=== PATIENT | male | born 1965 | race Caucasian/White ===

== ENCOUNTER 2024-06-03 12:09 | Emergency (ER) | payer MEDICAID, SELFPAY ==
[2024-06-03 12:41] VITALS: BP 157/85; PULSE 70; RESP 18; TEMP 36.4; O2SAT 96; BMI 23.6
[2024-06-03 13:14] LABS: Basophils # 0.1 10^3/uL (0.0-0.1); Basophils % 1.1 %; Eosinophils # 0.3 10^3/uL (0.0-0.8); Eosinophils % 3.8 %; Hematocrit 48.8 % (37-53); Lymphocytes # 1.8 10^3/uL (0.8-4.8); Lymphocytes % 24.2 %; Mean Corpuscular HGB Conc 32.4 g/dL (30-55); Mean Corpuscular Hemoglobin 31.7 pg (27-33); Mean Platelet Volume 9.8 fL (7.4-10.4); Monocytes # 0.8 10^3/uL (0.2-0.9); Monocytes % 11.2 %; Neutrophils # 4.43 10^3/uL (1.8-7.7); Neutrophils % 59.6 %; Nucleated Red Blood Cells % 0 %; Platelet Count 363 10^3/cmm (157-399); Red Blood Count 4.98 10^6/uL (3.85-5.65); Red Cell Distribution Width 13.1 % (12.1-15.1); White Blood Count 7.43 10^3/uL (3.29-11.43)
[2024-06-03 13:37] LABS: Alanine Aminotransferase 20 U/L (0-41); Albumin Level 4.2 g/dL (3.5-5.2); Alkaline Phosphatase 113 U/L (40-130); Aspartate Amino Transferase 26 U/L (0-40); Blood Urea Nitrogen 7 mg/dL (8-23); Calcium 9.1 mg/dL (8.5-10.5); Carbon Dioxide 27 mmol/L (22-29); Chloride 101 mmol/L (98-107); Creatinine Clr Calc Pharmacy 132.3148; Glomerular Filtration Rate 137.4 mL/min (90-130); Glucose 83 mg/dL (65-115); Lipase 161 U/L (13-60); Osmolality Calculated 285 mOsm/kg (285-295); Sodium 139 mmol/L (136-145); Total Bilirubin 0.4 mg/dL (0.15-1.2); Total Protein 7.2 g/dL (6.6-8.7)
--- NOTE | 2024-06-03 14:41 | XR_ITS ---
WS: [id number] Portable AP upright chest, 06/03/2024 Clinical Data: cough/congestion Comparison: Portable chest, 05/22/2012 Findings: No nodules, masses or effusions are seen. The heart is normal. The pulmonary vascularity is not increased. No pneumonia or pneumothorax is seen. There are calcified granulomas in both [place] and in the lateral left lung periphery and lower right lung periphery. There are healed fractures of the left posterior lateral ninth and 10th ribs. The diaphragms are flattened. XR/XR chest 1V portable 25902 Impression: Hyperinflation.
--- NOTE | 2024-06-03 14:42 | W.ED.GENADLT ---
HPI - General Adult General: Chief complaint: Nausea/Vomiting/Diarrhea Stated complaint: n/v, diarrhea Time Seen by Provider: 06/03/24 13:56 Source: patient Mode of arrival: EMS Limitations: no limitations History of Present Illness: Patient is a 58-year-old male who presents to ED today stating I have caught a cold . He states he is having nasal congestion, runny nose, cough, headache, subjective fevers, chills, nausea/vomiting, and diarrhea. Symptoms been present over the past 2 days or so. Patient states he was in a group home several months ago but left stating I wanted to take care of myself at home but is now wanting to go back to the group home. He states he is normally wheelchair-bound due to chronic back pain but does easily transfer in his home to his bed and toilet. At one point he was under the care of a primary care provider however has not seen them in several months as he was unsatisfied with the last care he received. Patient is an everyday smoker/everyday drinker. Onset (ago): day(s) Severity: mild Relieving factors: none Exacerbating factors: none Associated symptoms: Reports headache(s), nausea and vomiting; Deny chest pain, malaise, rash or syncope Treatments prior to arrival: none Related Data Allergies Allergy/AdvReac Type Severity Reaction Status Date / Time codeine Allergy ADR-Agitate Verified 06/03/24 12:45 d Review of Systems Const: Reports: fever(s) (subjective) and chills; Denies: body aches, fatigue or malaise Eyes: Denies: change in vision, blurry vision, photophobia, floaters or seeing flashes ENMT: Reports: nasal discharge and nasal congestion; Denies: throat pain or odynophagia Card: Denies: chest pain, syncope or pre-syncope Resp: Reports: non-productive cough and chest congestion; Denies: wheezing or hemoptysis GI: Reports: nausea and vomiting; Denies: abdominal pain or diarrhea : Denies: flank pain, difficulty urinating, dysuria, urinary frequency, urinary urgency or urinary hesitancy Musc: Denies: neck pain, back pain, extremity pain, extremity swelling, joint pain or joint swelling Skin/Breast: Denies: rash Neuro: Reports: headache(s); Denies: numbness in extremities, weakness in extremities, sensory changes or dizziness Physical Exam Const: COMMON NORMALS: no acute distress, average body habitus, patient oriented x3, no limitations and alert GENERAL APPEARANCE: cooperative ORIENTATION/CONSCIOUSNESS: Yes awake, Yes oriented to person, Yes oriented to place and Yes oriented to time HENMT: COMMON NORMALS: normocephalic and atraumatic HEAD & SCALP: normal to inspection, normocephalic and atraumatic FACE & SINUS: normal facial exam NOSE: Nasal discharge present Neck/C-Spine: COMMON NORMALS: full ROM and no lymphadenopathy Resp: COMMON NORMALS: normal respiratory effort and clear to auscultation bilaterally AUSCULTATION: clear to auscultation bilaterally Cardio: COMMON NORMALS: regular rate and regular rhythm RATE: regular rate RHYTHM: regular rhythm GI: COMMON NORMALS: Normal to inspection, nondistended, normoactive bowel sounds present, Soft to palpation, non-tender, No hepatosplenomegaly present and no masses PALPATION: Yes Soft to palpation and Yes No hepatosplenomegaly present : COMMON NORMALS: Yes no CVA tenderness BLADDER/KIDNEY EXAM: Yes no CVA tenderness Back/Pelvis: COMMON NORMALS: no CVA tenderness Extremity: GENERAL: Yes normal exam except as noted Neuro: COMMON NORMALS: patient oriented x3, moves all extremities, no focal motor deficits and no sensory deficits noted SENSORIUM/ORIENTATION: Yes alert, Yes oriented to person, Yes oriented to place and Yes oriented to time Skin: COMMON NORMALS: no rashes or lesions noted GENERAL SKIN EXAM: no rashes or lesions noted Course Vital Signs: Vital signs: Vital Signs Temperature 97.6 F 06/03/24 12:41 Pulse Rate 70 06/03/24 12:41 Respiratory Rate 18 06/03/24 12:41 Blood Pressure 157/85 06/03/24 12:41 Pulse Oximetry 96 06/03/24 12:41 Oxygen Delivery Me thod Room Air 06/03/24 12:41 [facility] - General Adult Medical Decision Making Patient here clinically in no acute distress. His vital signs are stable. He has not had any episodes of vomiting or diarrhea while here. He is not complaining of any abdominal pain and his abdominal exam was benign. Blood work here is completely unremarkable apart from his lipase of 161. He is an everyday drinker. No previous comparisons. Again he is not having any abdominal tenderness at this time. COVID/flu/RSV testing is negative. His CXR showing no acute findings. At this point I do not have any reason for a 3 midnight hospitalization for him to go to a group home. I will have case management set him up with a primary care provider and they can work on getting him back to a group home if this is his long-term goal plan. Medical Records I reviewed the patient's medical records. Lab Data I reviewed the patient's lab results. 06/03/24 13:00 06/03/24 13:00 Radiology Impressions Chest X-Ray 06/03/24 14:41 Impression: Hyperinflation. Laboratory Results WBC 7.43 10^3/uL (3.29-11.43) 06/03/24 13:00 RBC 4.98 10^6/uL (3.85-5.65) 06/03/24 13:00 Hgb 15.80 g/dL (11.27-16.99) 06/03/24 13:00 Hct 48.8 % (37-53) 06/03/24 13:00 MCV 98.0 fl (82-101) 06/03/24 13:00 MCH 31.7 pg (27-33) 06/03/24 13:00 MCHC 32.4 g/dL (30-55) 06/03/24 13:00 RDW 13.1 % (12.1-15.1) 06/03/24 13:00 Plt Count 363 10^3/cmm (157-399) 06/03/24 13:00 MPV 9.8 fL (7.4-10.4) 06/03/24 13:00 Neut % (Auto) 59.6 % 06/03/24 13:00 Lymph % (Auto) 24.2 % 06/03/24 13:00 [place] % (Auto) 11.2 % 06/03/24 13:00 Eos % (Auto) 3.8 % 06/03/24 13:00 Baso % (Auto) 1.1 % 06/03/24 13:00 Neut # (Auto) 4.43 10^3/uL (1.8-7.7) 06/03/24 13:00 Lymph # (Auto) 1.8 10^3/uL (0.8-4.8) 06/03/24 13:00 [place] # (Auto) 0.8 10^3/uL (0.2-0.9) 06/03/24 13:00 Eos # (Auto) 0.3 10^3/uL (0.0-0.8) 06/03/24 13:00 Baso # (Auto) 0.1 10^3/uL (0.0-0.1) 06/03/24 13:00 Nucleated RBC % (auto) 0 % 06/03/24 13:00 Nucleated RBCs # 0.0 /100WBC 06/03/24 13:00 Sodium 139 mmol/L (136-145) 06/03/24 13:00 Potassium 4.0 mmol/L (3.5-5.1) 06/03/24 13:00 Chloride 101 mmol/L (98-107) 06/03/24 13:00 Carbon Dioxide 27 mmol/L (22-29) 06/03/24 13:00 Anion Gap 15.0 (5-19) 06/03/24 13:00 BUN 7 mg/dL (8-23) L 06/03/24 13:00 Creatinine 0.6 mg/dL (0.7-1.2) L 06/03/24 13:00 GFR Calculation 137.4 mL/min (90-130) H 06/03/24 13:00 Glucose 83 mg/dL (65-115) 06/03/24 13:00 Calculated Osmolality 285 mOsm/kg (285-295) 06/03/24 13:00 Calcium 9.1 mg/dL (8.5-10.5) 06/03/24 13:00 Total Bilirubin 0.4 mg/dL (0.15-1.2) 06/03/24 13:00 AST 26 U/L (0-40) 06/03/24 13:00 ALT 20 U/L (0-41) 06/03/24 13:00 Alkaline Phosphatase 113 U/L (40-130) 06/03/24 13:00 Total Protein 7.2 g/dL (6.6-8.7) 06/03/24 13:00 Albumin 4.2 g/dL (3.5-5.2) 06/03/24 13:00 Globulin 3.0 g/dL (1.3-4.6) 06/03/24 13:00 Lipase 161 U/L (13-60) H 06/03/24 13:00 Coronavirus (PCR) Negative (Negative) 06/03/24 14:55 Influenza A (PCR) Negative (Negative) 06/03/24 14:55 Influenza Type B (PCR) Negative (Negative) 06/03/24 14:55 RSV (PCR) Negative (Negative) 06/03/24 14:55 All radiology interpretation(s) finalized by discharge Discharge Plan Discharge Patient Disposition: Home Clinical Impression: Viral syndrome Condition: Stable Discharge Orders: Discharge ED (Routine); Ordered 06/03/24 Ordered By: Tiffani Richardson Referrals: Max Shay DO [Family Provider] - Patient Instructions: Acute Nausea and Vomiting (DC), Viral Syndrome - Adult Activity Restrictions/Additional Instructions: As we discussed, we we will have case management set you up with a primary care provider and they can work on getting you back into a group home if this is your long-term care goal. I do not have any reason at this time to admit you to the hospital for 3 days for insurance to cover group home placement. You may return to the emergency department for worsening vomiting or diarrhea, severe abdominal pain, fevers, generally feeling worse or unwell, or any other concerns you may have. I hope you begin to feel better soon. Coding Level of Care Code ED Nuclear Plant Equipment Operator for Darrel Bess
[2024-06-03 15:39] LABS: Covid PCR NEGATIVE (Negative); Influenza A NEGATIVE (Negative); Influenza B NEGATIVE (Negative); Respiratory Syncytial Virus Ce NEGATIVE (Negative)
[2024-06-03 16:17] VITALS: BP 152/76; PULSE 87; O2SAT 97
--- NOTE | 2024-06-06 07:10 | DCPLANNER ---
messaged [facility] to establish PCP
== END 2024-06-03 16:18 | disposition home or self-care (01) ==
PROVIDERS: Emergency Provider Physician Assistant; Family Provider Family Medicine
DX: B34.9 Viral infection, unspecified (principal); Z11.52 Encounter for screening for COVID-19
CPT/HCPCS: 36415; 71045; 80053; 83690; 85025; 87637; 99284

== ENCOUNTER → 2024-11-24 09:19 | Outpatient (BNVA) | payer MEDICAID, SELFPAY | PROVIDERS: Family Provider Family Medicine; Visit Provider Nurse Practitioner Family | DX: L40.0 Psoriasis vulgaris (principal); L81.1 Chloasma; L82.1 Other seborrheic keratosis; L21.8 Other seborrheic dermatitis | CPT/HCPCS: 99204 ==

== ENCOUNTER 2025-01-22 15:34 | Emergency (ER) | payer MEDICAID, SELFPAY ==
[2025-01-22 15:35] VITALS: BP 179/90; PULSE 70; RESP 18; TEMP 36.8; O2SAT 94; BMI 23.6
--- OUTSIDE RECORDS SUMMARY | 2025-01-22 15:38 | XMS_ITS | Clinical Summary ---
Author Organization [facility] Address [address] [place] [address] [place] [address] Phone Care Team Providers Care Patient Consumer Marketer Name Role Phone Diana Vegas EVALUATOR Primary Care Provider [phone] Allergies Active Allergy Reactions Criticality Noted Date Comments Codeine Itching 11/25/2023 Tetracycline Other 11/25/2023 Medications baclofen (Lioresal) 10 mg tablet Take 10 mg by mouth 2 (two) times a day. 10/26/2023 Active LORazepam (Ativan) 1 mg tablet Take 1 mg by mouth every 8 (eight) hours if needed. 05/26/2023 Active meloxicam (Mobic) 15 mg tablet Take 15 mg by mouth 1 (one) time each day. 11/09/2023 Active Social History Tobacco Use Types Packs/Day Years Used Date Smoking Tobacco: Former Cigarettes Smokeless Tobacco: Former Tobacco Cessation:Counseling Given: Not Answered Alcohol Use Standard Drinks/Week Comments Never 0 (1 standard drink = 0.6 oz pur e alcohol) PHQ-2 Answer Date Recorded Patient Health Questionnaire-2 Score 0 11/25/2023 [facility] - Mental Health Answer Date Recorde d Little interest or pleasure in doing things Not at all 11/25/2023 Feeling down, depressed, or hopeless Not at all 11/25/2023 Feeling of Stress Not on file 11/25/2023 Sex and Gender Information Value Date Recorded Sex Assigned at Not on file Legal Sex Male 12:04 PM CDT Gender Identity Not on file Sexual Orientation Not on file Last Filed Vital Signs Vital Sign Reading Time Taken Comments Blood Pressure 104/48 11/25/2023 10:00 AM CDT Pulse - - Temperature 36.4 C (97.5 F) 11/25/2023 10:00 AM CDT Respiratory Rate - - Oxygen Saturation - - Inhaled Oxygen Concentration - - Weight - - Height - - Body Mass Index - - Plan of Treatment Health Maintenance Due Date Last Done Comments CT Colonography 1963 Colonoscopy 1963 Colorectal Cancer Screening 1963 FIT-DNA 1963 FIT 1963 FOBT 1963 Lipid Panel 1963 Sigmoidoscopy 1963 MMR Vaccines (1 of 1 - Stand leslie series) 12/12/1964 DTaP,Tdap,and Td Vaccines (1 - Tdap) 12/12/1970 Varicella Vaccines (1 of 2 - 13+ 2-dose series) 12/12/1976 Depression Screening 12/12/1981 Social Drivers of Health (SDoH) 12/12/1981 Pneumococcal Vaccine: 50+ Ye ars (1 of 1 - PCV) 12/12/2013 Zoster Vaccines (1 of 2) 12/12/2013 COVID-19 Vaccine (1 - 2023-2 5 season) 2025 Influenza Vaccine (#1) 2025 RSV Vaccines (1 - 1-dose 75+ series) 12/12/2038 HIB Vaccines Aged Out No longer eligi ble based on patient's age to complete this topic HPV Vaccines Aged Out No longer eligi ble based on patient's age to complete this topic Hepatitis A Vaccines Aged Out No long er eligible based on patient's age to complete this topic Hepatitis B Vaccines Aged Out No long er eligible based on patient's age to complete this topic IPV Vaccines Aged Out No longer eligi ble based on patient's age to complete this topic Meningococcal B Vaccine Aged Out No l onger eligible based on patient's age to complete this topic Meningococcal Vaccine Aged Out No rj rosie eligible based on patient's age to complete this topic Pneumococcal Vaccine Aged Out No long er eligible based on patient's age to complete this topic Rotavirus Vaccines Aged Out No longer eligible based on patient's age to complete this topic Insurance [employer] acquired by [employer] Care Teams Patient Consumer Marketer Relationship Specialty Start Date End Date Diana Vegas NP [address] [place] [address] PCP - General Family Medicine 11/24/23
--- OUTSIDE RECORDS SUMMARY | 2025-01-22 15:38 | XMS_ITS | Encounter Summary ---
Author Organization [employer] Address [address] [facility] 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
--- OUTSIDE RECORDS SUMMARY | 2025-01-22 15:38 | XMS_ITS | Encounter Summary ---
Author Organization [facility] Address [address] [place] [address] Care Team Providers Care Patrol Inspector Name Role Phone Brandt Lees FIELD TECHNICAL ASSISTANT Primary Care Provider [phone] Encounter Details Date Type Department Care Team (Latest Contact Info) Description 07/27/2002 Outpatient Historical [facility] [place] [address] [phone] Yadiel Michelle MD [address] [place] [phone] PNEUMONIA, ORGANISM NOS (Primary Dx); ASTHMA NOS W STATUS ASTHMATICUS Social History Tobacco Use Types Packs/Day Years Used Date Smoking Tobacco: Never Assessed Sex and Gender Information Value Date Recorded Sex Assigned at Not on file 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
--- OUTSIDE RECORDS SUMMARY | 2025-01-22 15:38 | XMS_ITS | Clinical Summary ---
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
--- OUTSIDE RECORDS SUMMARY | 2025-01-22 15:38 | XMS_ITS | Encounter Summary ---
Author Organization [facility] Address [address] [place] [address] Care Team Providers Care Manager Field Investigations Name Role Phone Brandt Lees GLOBAL COMPENSATION ANALYST Primary Care Provider [phone] Encounter Details Date Type Department Care Team (Latest Contact Info) Description 05/24/2004 Outpatient Historical [facility] Medicine [address], [place] [phone] Yadiel Michelle MD [address] [place] [phone] ORAL SOFT TISSUE DIS NEC (Primary Dx); DERMATOPHYTOSIS OF BODY Social History Tobacco Use Types Packs/Day Years Used Date Smoking Tobacco: Never Assessed Sex and Gender Information Value Date Recorded Sex Assigned at Not on file Legal Sex Male 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
--- OUTSIDE RECORDS SUMMARY | 2025-01-22 15:38 | XMS_ITS | Encounter Summary ---
Author Organization [facility] Address [address] [place] [address] Care Team Providers Care Floor Layer Name Role Phone Brandt Lees TUBE BENDER Primary Care Provider [phone] Encounter Details Date Type Department Care Team (Latest Contact Info) Description 01/23/2003 Outpatient Historical [facility] [address] [place] [address] AMBULANCE, [facility] ALCOHOL ABUSE-UNSPEC (Primary Dx) Social History Tobacco Use Types Packs/Day Years Used Date Smoking Tobacco: Never Assessed Sex and Gender Information Value Date Recorded Sex Assigned at Not on file Legal Sex Male 5:08 AM INDUSTRIAL HYGIENE MANAGER Gender Identity Not on file Sexual Orientation Not on file documented as of this encounter Plan of Treatment Not on file documented as of this encounter Visit Diagnoses Diagnosis Alcohol abuse, unspecified- Primary documented in this encounter Care Teams Floor Layer Relationship Specialty Start Date End Date Brandt Lees NP PCP - General 07/30/07 05/27/09 documented as of this encounter
--- OUTSIDE RECORDS SUMMARY | 2025-01-22 15:38 | XMS_ITS | Encounter Summary ---
Author Organization [facility] Address [address] [place] [address] Care Team Providers Care Medical Customer Service Representative Name Role Phone Brandt Lees INVENTORY COORDINATOR Primary Care Provider [phone] Encounter Details Date Type Department Care Team (Late st Contact Info) Description 04/05/2002 Outpatient Historical [facility] Robbins [place] [address] [place] [phone] Social History Tobacco Use Types Packs/Day Years Used Date Smoking Tobacco: Never Assessed Sex and Gender Information Value Date Recorded Sex Assigned at Not on file Legal Sex Male 5:08 AM RUNNER ON Gender Identity Not on file Sexual Orientation Not on file documented as of this encounter Plan of Treatment Not on file documented as of this encounter Visit Diagnoses Not on filedocumented in this encounter Care Teams Medical Customer Service Representative Relationship Specialty Start Date End Date Brandt Lees NP PCP - General 07/30/07 05/27/09 documented as of this encounter
--- OUTSIDE RECORDS SUMMARY | 2025-01-22 15:38 | XMS_ITS | Encounter Summary ---
Author Organization [facility] Address [address] [place] [address] Care Team Providers Care Home Theater Experience Expert Name Role Phone Brandt Lees NP Primary Care Provider [phone] Encounter Details Date Type Department Care Team (Latest Contact Info) Description 10/11/1999 Outpatient Historical [facility] Medicine [address] [phone] Marlon Hager MD [address] [place] [address] Chest pain, unspecified (Primary Dx); Esophageal reflux Social History Tobacco Use Types Packs/Day Years Used Date Smoking Tobacco: Never Assessed Sex and Gender Information Value Date Recorded Sex Assigned at Not on file Legal Sex Male 5:08 AM NITRATING ACID 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
--- OUTSIDE RECORDS SUMMARY | 2025-01-22 15:38 | XMS_ITS | Encounter Summary ---
Author Organization [facility] Address [address] [place] [address] Care Team Providers Care Winter Sports Manager Name Role Phone Brandt Lees NP Primary Care Provider [phone] Encounter Details Date Type Department Care Team (Latest Contact Info) Description 03/03/2002 Outpatient Historical [address] [phone] Alea Burgos MD [address] [place] [id number] WHEEZING (Primary Dx); UNSPEC CONSTIPATION; ABDOMINAL PAIN LUQ; ALCOHOL ABUSE-CONTINUOUS Social History Tobacco Use Types Packs/Day Years Used Date Smoking Tobacco: Never Assessed Sex and Gender Information Value Date Recorded Sex Assigned at Not on file Legal Sex Male 5:08 AM COLOR WORKER Gender Identity Not on file Sexual Orientation Not on file documented as of this encounter Plan of Treatment Not on file documented as of this encounter Visit Diagnoses Diagnosis Wheezing- Primary Unspecified constipation Abdominal pain, left upper quadrant Alcohol abuse, continuous Nondependent alcohol abuse, continuous drinking behavior documented in this encounter Care Teams Winter Sports Manager Relationship Specialty Start Date End Date Brandt Lees NP PCP - General 07/30/07 05/27/09 documented as of this encounter
--- OUTSIDE RECORDS SUMMARY | 2025-01-22 15:38 | XMS_ITS | Encounter Summary ---
Author Organization [facility] Address [address] [place] [address] Care Team Providers Care Card Filer Name Role Phone Brandt Lees NP Primary Care Provider [phone] Encounter Details Date Type Department Care Team (Latest Contact Info) Description 07/15/2004 Outpatient Historical [facility] Medicine [address] [phone] Viridiana Cunningham MD [address] [place] [address] OBST CHRON BRONCHITIS WITH EXAC ([facility]) (Primary Dx); PNEUMONIA, ORGANISM NOS Social History Tobacco Use Types Packs/Day Years Used Date Smoking Tobacco: Never Assessed Sex and Gender Information Value Date Recorded Sex Assigned at Not on file Legal Sex Male 5:08 AM PRODUCTION SUPPORT CONSULTANT Gender Identity Not on file Sexual Orientation Not on file documented as of this encounter Plan of Treatment Not on file documented as of this encounter Visit Diagnoses Diagnosis Obstructive chronic bronchitis with exacerbation ([facility])- Primary Obstructive chronic bronchitis with exacerbation Pneumonia, organism unspecified(486) Pneumonia, organism unspecified documented in this encounter Care Teams Card Filer Relationship Specialty Start Date End Date Brandt Lees NP PCP - General 07/30/07 05/27/09 documented as of this encounter
--- OUTSIDE RECORDS SUMMARY | 2025-01-22 15:38 | XMS_ITS | Clinical Summary ---
Author Organization [facility] Address [address] [facility] Attn: Epic Prelude ADT ISIAH VOSS [address] Care Team Providers Care Shaker Screen Operator Name Role Phone Moses Scott MD Primary Care Provider Allergies Active Allergy Reactions Criticality Noted Date Comments Codeine Itching Low 11/25/2023 Tetracycline Other (See Comments) 11/25/2023 Medications LORazepam (ATIVAN) 1 mg tablet Take 1 mg by mouth every 8 hours as needed. 05/26/2023 Active lisinopriL (PRINIVIL) 20 mg tabletIndications :Primary hypertension Take 1 Tablet (20 mg) by mouth daily. 90 Tablet 1 02/08/2024 Active rOPINIRole (REQUIP) 1 mg tabletIndications :Restless legs syndrome Take 1 Tablet (1 mg) by mouth daily at bedtime. 90 Tablet 1 02/08/2024 Active tiZANidine (ZANAFLEX) 4 mg TabletIndications :Leg cramps Take 1 Tablet (4 mg) by mouth every 8 hours as needed for Spasm. 90 Tablet 2 02/08/2024 Active meloxicam (MOBIC) 15 mg tabletIndications :Chronic right hip pain Take 1 Tablet (15 mg) by mouth daily. 30 Tablet 2 02/08/2024 Active Active Problems Problem Noted Date Diagnosed Date Cigarette dependence 02/08/2024 Encounters Date Type Department Care Team Description 12/27/2024 External Device Data STL ABSTRACTION Provider, Abstract 11/01/2024 External Device Data STL ABSTRACTION Provider, Abstract 10/26/2024 External Device Data STL ABSTRACTION Provider, Abstract from Last 3 Months Family History Medical History Relation Name Comments Heart Attack Father Heart Attack Mother Relation Name Status Comments Father Mother Social History Tobacco Use Types Packs/Day Years Used Date Smoking Tobacco: Every Day Cigarettes 0.3 55.7 Started: 1972 Smokeless Tobacco: Current Chew Tobacco Cessation:Ready to Q uit: Not Asked; Counseling Given: Not Answered Alcohol Use Standard Drinks/Week Comments Yes 10 (1 standard drink = 0.6 oz pu re alcohol) Sex and Gender Information Value Date Recorded Sex Assigned at Not on file Legal Sex Male 12:45 AM DRY KILN OPERATOR Gender Identity Not on file Sexual Orientation Not on file Last Filed Vital Signs Vital Sign Reading Time Taken Comments Blood Pressure 130/100 02/08/2024 1:30 PM CDT Pulse 84 02/08/2024 1:28 PM CDT Temperature 36.4 C (97.5 F) 02/08/2024 1:28 PM CDT Respiratory Rate 16 02/08/2024 1:28 PM CDT Oxygen Saturation 95% 02/08/2024 1:2 8 PM CDT Inhaled Oxygen Concentration - - Weight 83.9 kg (185 lb) 02/08/2024 1:28 PM CDT patient reported Height 175.3 cm (5' 9 ) 02/08/2024 1:28 PM CDT Body Mass Index 27.32 02/08/2024 1:28 PM CDT Plan of Treatment Health Maintenance Due Date Last Done Comments Pre-Diabetes and Diabetes Screening 1965 DTAP/TDAP/TD VACCINES (1 - Tdap) 12/12/1982 Preventative Visit-Managed Medicaid 12/12/1982 COLORECTAL SCREENING 12/12/2008 Colorectal Cancer Screening 12/12/2008 FIT-DNA Q 3 years 12/12/2008 FIT/FOBT Q 1 year 12/12/2008 Flex Sig/CT Colonography Q 5 years 12/12/2008 ZOSTER VACCINE (1 of 2) 12/12/2013 INFLUENZA VACCINE (#1) 2024 RSV VACCINE (60+ or ) (1 - 1-dose 75+ series) 12/12/2038 Insurance [place] Member Subscriber Plan / Payer (Ef fective 2024-Present) Name:Alexey Valdivia Relation to Subscriber:Self Name:Alexey Valdivia Maribel Payer ID:Not on file Group ID:Not on file Type:Medicaid Address: [place] [id number] Care Teams Shaker Screen Operator Relationship Specialty Start Date End Date Moses Scott MD [address] [address] PCP - General Family Practice 02/05/24
--- OUTSIDE RECORDS SUMMARY | 2025-01-22 15:38 | XMS_ITS | Encounter Summary ---
Author Organization [facility] Address [address] [facility] [address] Velan: Epic Prelude ADT ISIAH VOSS [address] Care Team Providers Care Roads Supervisor Name Role Phone Brandt Lees CONTROLLER REPAIRER AND TESTER Primary Care Provider [phone] Encounter Details Date Type Department Care Team (Late st Contact Info) Description 09/11/1999 Outpatient Historical Non-Staff, Physician NO ADDRESS ON FILE Social History Tobacco Use Types Packs/Day Years Used Date Smoking Tobacco: Never Assessed Sex and Gender Information Value Date Recorded Sex Assigned at Not on file Legal Sex Male 5:08 AM ELECTROPHYSIOLOGY TECHNICIAN Gender Identity Not on file Sexual Orientation Not on file documented as of this encounter Plan of Treatment Not on file documented as of this encounter Visit Diagnoses Not on filedocumented in this encounter Care Teams Roads Supervisor Relationship Specialty Start Date End Date Brandt Lees NP PCP - General 07/30/07 05/27/09 documented as of this encounter
--- OUTSIDE RECORDS SUMMARY | 2025-01-22 15:38 | XMS_ITS | Encounter Summary ---
Author Organization [facility] Address [address] [place] [address] Care Team Providers Care Playroom Attendant Name Role Phone Brandt Lees SKIVER WELT END Primary Care Provider Encounter Details Date Type Department Care Team (Latest Contact Info) Description 03/01/2004 Outpatient Historical [facility] Medicine [address] [address] Viridiana Cunningham MD [address] [place] [address] ABNORMAL LIVER FUNCTION STUDY (Primary Dx); ALCOHOL ABUSE-UNSPEC Social History Tobacco Use Types Packs/Day Years Used Date Smoking Tobacco: Never Assessed Sex and Gender Information Value Date Recorded Sex Assigned at Not on file Legal Sex Male 5:08 AM SECOND BUTLER Gender Identity Not on file Sexual Orientation Not on file documented as of this encounter Plan of Treatment Not on file documented as of this encounter Visit Diagnoses Diagnosis Nonspecific abnormal results of liver function study- Primary Alcohol abuse, unspecified documented in this encounter Care Teams Playroom Attendant Relationship Specialty Start Date End Date Brandt Lees NP PCP - General 07/30/07 05/27/09 documented as of this encounter
--- OUTSIDE RECORDS SUMMARY | 2025-01-22 15:38 | XMS_ITS | Encounter Summary ---
Author Organization [facility] Address [address] [place] [address] Care Team Providers Care Pottery Decoration Designer Name Role Phone Brandt Lees RIGHT OF WAY MAINTENANCE SUPERVISOR Primary Care Provider Encounter Details Date Type Department Care Team (Latest Contact Info) Description 05/29/2002 Outpatient Historical [facility] [address] [place] [address] AMBULANCE, [facility] CONDUCT DISORDER OTHR SPEC NEC (Primary Dx) Social History Tobacco Use Types Packs/Day Years Used Date Smoking Tobacco: Never Assessed Sex and Gender Information Value Date Recorded Sex Assigned at Not on file Legal Sex Male 5:08 AM GAS WELDER APPRENTICE Gender Identity Not on file Sexual Orientation Not on file documented as of this encounter Plan of Treatment Not on file documented as of this encounter Visit Diagnoses Diagnosis Other conduct disorder- Primary documented in this encounter Care Teams Pottery Decoration Designer Relationship Specialty Start Date End Date Brandt Lees NP PCP - General 07/30/07 05/27/09 documented as of this encounter
--- OUTSIDE RECORDS SUMMARY | 2025-01-22 15:38 | XMS_ITS | Encounter Summary ---
Author Organization [facility] Address [address] [place] [address] Care Team Providers Care Head Of Research & Insights Name Role Phone Brandt Lees DIAL BRUSHER Primary Care Provider [phone] Encounter Details Date Type Department Care Team (Late st Contact Info) Description 02/15/2003 Outpatient Historical [facility] [place] [address] [place] [phone] Social History Tobacco Use Types Packs/Day Years Used Date Smoking Tobacco: Never Assessed Sex and Gender Information Value Date Recorded Sex Assigned at Not on file Legal Sex Male 5:08 AM HAIR BOILER Gender Identity Not on file Sexual Orientation Not on file documented as of this encounter Plan of Treatment Not on file documented as of this encounter Visit Diagnoses Not on filedocumented in this encounter Care Teams Head Of Research & Insights Relationship Specialty Start Date End Date Brandt Lees NP PCP - General 07/30/07 05/27/09 documented as of this encounter
--- OUTSIDE RECORDS SUMMARY | 2025-01-22 15:38 | XMS_ITS | Encounter Summary ---
Author Organization [facility] Address [address] [place] [address] Care Team Providers Care Principal Developer Name Role Phone Brandt Lees ROPE CLEANER Primary Care Provider [phone] Encounter Details Date Type Department Care Team (Latest Contact Info) Description 03/01/2004 Outpatient Historical [facility] Medicine [address] [address] Brandt Lees NP [address] [place], [place] [address] ABNORMAL LIVER FUNCTION STUDY (Primary Dx) Social History Tobacco Use Types Packs/Day Years Used Date Smoking Tobacco: Never Assessed Sex and Gender Information Value Date Recorded Sex Assigned at Not on file Legal Sex Male 5:08 AM WAXING MACHINE OPERATOR HELPER Gender Identity Not on file Sexual Orientation Not on file documented as of this encounter Plan of Treatment Not on file documented as of this encounter Visit Diagnoses Diagnosis Nonspecific abnormal results of liver function study- Primary documented in this encounter Care Teams Principal Developer Relationship Specialty Start Date End Date Brandt Lees NP PCP - General 07/30/07 05/27/09 documented as of this encounter
--- OUTSIDE RECORDS SUMMARY | 2025-01-22 15:38 | XMS_ITS | Encounter Summary ---
Author Organization [facility] Address [address] [place] [address] Care Team Providers Care Baking Factory Worker Name Role Phone Brandt Lees PHARMACOLOGY PROFESSOR Primary Care Provider [phone] Encounter Details Date Type Department Care Team (Latest Contact Info) Description 01/21/2002 Outpatient Historical [facility] Medicine [address] [phone] Yadiel Michelle MD [address] [place] [address] ACUTE BRONCHITIS (Primary Dx); ABNORMAL FINDINGS-LUNG FIELD Social History Tobacco Use Types Packs/Day Years Used Date Smoking Tobacco: Never Assessed Sex and Gender Information Value Date Recorded Sex Assigned at Not on file Legal Sex Male 5:08 AM MEDIA RELATIONS ASSOCIATE Gender Identity Not on file Sexual Orientation Not on file documented as of this encounter Plan of Treatment Not on file documented as of this encounter Visit Diagnoses Diagnosis Acute bronchitis- Primary Nonspecific (abnormal) findings on radiological and other examination of lung field documented in this encounter Care Teams Baking Factory Worker Relationship Specialty Start Date End Date Brandt Lees NP PCP - General 07/30/07 05/27/09 documented as of this encounter
--- OUTSIDE RECORDS SUMMARY | 2025-01-22 15:38 | XMS_ITS | Encounter Summary ---
Author Organization [facility] Address [address] [place] [address] Care Team Providers Care Senior Branch Manager Name Role Phone Brandt Lees OTR OWNER OPERATOR Primary Care Provider [phone] Encounter Details Date Type Department Care Team (Latest Contact Info) Description 02/26/2006 Outpatient Historical [facility] Medicine [address] [phone] Brandt Lees, OTR OWNER OPERATOR [address] [place] [address] Abdominal Pain, Unspecified Site (Primary Dx) Social History Tobacco Use Types Packs/Day Years Used Date Smoking Tobacco: Never Assessed Sex and Gender Information Value Date Recorded Sex Assigned at Not on file Legal Sex Male 5:08 AM METHODS STUDY ANALYST Gender Identity Not on file Sexual Orientation Not on file documented as of this encounter Plan of Treatment Not on file documented as of this encounter Procedures Procedure Name Priority Date/Time Associated Diagnosis Comments ACUTE HEPATITIS PANEL Routine 02/26/2006 1:15 PM CDT documented in this encounter Results * ACUTE HEPATITIS PANEL (02/26/2006 1:15 PM CDT) HEPATITIS B SURFACE AG Negative Negative INTERFACE SYSTEM HEPATITIS B CORE IGM Negative Negative INTERFACE SYSTEM HEPATITIS A IGM Negative Negative INTE RFACE SYSTEM HEPATITIS C AB Negative Negative INTER FACE SYSTEM Comment: HCV antibody testing is performed by E.I.A. methodology. CDC recommends positive HCV antibody tests have confirmation testing. Low positive results should be confirmed with RIBA. This will determine if results are false positive. If a high positive result is obtained an HCV RNA may be run. The RNA test confirms infection and the level of the RNA, to some extent, helps guide treatment. The same specimen can be used for RIBA and will be held for 7 days. Please contact the Immunology lab if RIBA testing is desired. However, if HCV RNA testing is desired, a new specimen must be collected. Blood should be collected in SST (serum) or EDTA (plasma) separation tubes. Separate serum or plasma from whole blood within 6 hours of collection. Serum or plasma can be transported at refrigerated temperature or frozen and transported. 02/26/2006 1:15 PM CDT us Brandt Lees NP CHEMISTRY ORDERABLES Final Re sult INTERFACE SYSTEM Refer to clinic/hospital department documented in this encounter Visit Diagnoses Diagnosis Abdominal pain, unspecified site- Primary documented in this encounter Care Teams Senior Branch Manager Relationship Specialty Start Date End Date Brandt Lees NP PCP - General 07/30/07 05/27/09 documented as of this encounter
--- OUTSIDE RECORDS SUMMARY | 2025-01-22 15:38 | XMS_ITS | Encounter Summary ---
Author Organization [facility] Address [address] [place] [address] Care Team Providers Care Die Developer Name Role Phone Brandt Lees PRODUCT TECHNOLOGY SCIENTIST Primary Care Provider [phone] Encounter Details Date Type Department Care Team (Late st Contact Info) Description 08/13/1999 Outpatient Historical [facility] Occupational Medicine-[facility] [place] [address] [place] [phone] Social History Tobacco Use Types Packs/Day Years Used Date Smoking Tobacco: Never Assessed Sex and Gender Information Value Date Recorded Sex Assigned at Not on file Legal Sex Male 5:08 AM MINESWEEPING OFFICER Gender Identity Not on file Sexual Orientation Not on file documented as of this encounter Plan of Treatment Not on file documented as of this encounter Visit Diagnoses Not on filedocumented in this encounter Care Teams Die Developer Relationship Specialty Start Date End Date Brandt Lees NP PCP - General 07/30/07 05/27/09 documented as of this encounter
--- OUTSIDE RECORDS SUMMARY | 2025-01-22 15:38 | XMS_ITS | Encounter Summary ---
Author Organization [facility] Address [address] [place] [address] Care Team Providers Care Industrial Electrician Name Role Phone Brandt Lees MATERIAL CONTROL ANALYST Primary Care Provider [phone] Encounter Details Date Type Department Care Team (Latest Contact Info) Description 04/04/2002 Outpatient Historical [facility] Medicine [address] [phone] Yadiel Michelle MD [address] [place] [phone] PNEUMONIA, ORGANISM NOS (Primary Dx); ACUTE BRONCHITIS Social History Tobacco Use Types Packs/Day Years Used Date Smoking Tobacco: Never Assessed Sex and Gender Information Value Date Recorded Sex Assigned at Not on file Legal Sex Male 5:08 AM MULTIPLE DRUM SANDER Gender Identity Not on file Sexual Orientation Not on file documented as of this encounter Plan of Treatment Not on file documented as of this encounter Visit Diagnoses Diagnosis Pneumonia, organism unspecified(486)- Primary Pneumonia, organism unspecified Acute bronchitis documented in this encounter Care Teams Industrial Electrician Relationship Specialty Start Date End Date Brandt Lees NP PCP - General 07/30/07 05/27/09 documented as of this encounter
--- OUTSIDE RECORDS SUMMARY | 2025-01-22 15:38 | XMS_ITS | Encounter Summary ---
Author Organization [facility] Address [address] [place] [address] Care Team Providers Care Web Development Manager Name Role Phone Brandt Lees GUN MECHANIC Primary Care Provider [phone] Encounter Details Date Type Department Care Team (Latest Contact Info) Description 11/22/2001 [facility] [address] [phone] Yadiel Michelle MD [address] [place] [phone] ABDOMINAL PAIN UNSPEC SITE (Primary Dx); TOBACCO USE DISORDER; ALCOHOL ABUSE-UNSPEC Social History Tobacco Use Types Packs/Day Years Used Date Smoking Tobacco: Never Assessed Sex and Gender Information Value Date Recorded Sex Assigned at Not on file Legal Sex Male 5:08 AM ETL CONSULTANT Gender Identity Not on file Sexual Orientation Not on file documented as of this encounter Plan of Treatment Not on file documented as of this encounter Visit Diagnoses Diagnosis Abdominal pain, unspecified site- Primary Tobacco use disorder Alcohol abuse, unspecified documented in this encounter Care Teams Web Development Manager Relationship Specialty Start Date End Date Brandt Lees NP PCP - General 07/30/07 05/27/09 documented as of this encounter
--- OUTSIDE RECORDS SUMMARY | 2025-01-22 15:38 | XMS_ITS | Encounter Summary ---
Author Organization [facility] Address [address] [place] [address] Care Team Providers Care Air Defense Artillery Senior Sergeant Name Role Phone Brandt Lees SOLAR PHOTOVOLTAIC INSTALLER Primary Care Provider [phone] Encounter Details Date Type Department Care Team (Latest Contact Info) Description 07/31/2004 Outpatient Historical [facility]ulance [address] [place] [address] AMBULANCE, [facility] SHORTNESS OF BREATH (Primary Dx) Social History Tobacco Use Types Packs/Day Years Used Date Smoking Tobacco: Never Assessed Sex and Gender Information Value Date Recorded Sex Assigned at Not on file Legal Sex Male 5:08 AM ACID RECOVERY OPERATOR Gender Identity Not on file Sexual Orientation Not on file documented as of this encounter Plan of Treatment Not on file documented as of this encounter Visit Diagnoses Diagnosis Shortness of breath- Primary documented in this encounter Care Teams Air Defense Artillery Senior Sergeant Relationship Specialty Start Date End Date Brandt Lees NP PCP - General 07/30/07 05/27/09 documented as of this encounter
--- OUTSIDE RECORDS SUMMARY | 2025-01-22 15:38 | XMS_ITS | Encounter Summary ---
Author Organization [facility] Address [address] [place] [address] Care Team Providers Care Die Barber Name Role Phone Brandt Lees RIVERBOAT MASTER Primary Care Provider Encounter Details Date Type Department Care Team (Latest Contact Info) Description 02/26/2006 Outpatient Historical [facility] Medicine [address] [phone] Brandt Lees NP [address] [place], [place] [address] Abdominal Pain, Unspecified Site (Primary Dx) Social History Tobacco Use Types Packs/Day Years Used Date Smoking Tobacco: Never Assessed Sex and Gender Information Value Date Recorded Sex Assigned at Not on file Legal Sex Male 5:08 AM BOX ICER Gender Identity Not on file Sexual Orientation Not on file documented as of this encounter Plan of Treatment Not on file documented as of this encounter Visit Diagnoses Diagnosis Abdominal pain, unspecified site- Primary documented in this encounter Care Teams Die Barber Relationship Specialty Start Date End Date Brandt Lees NP PCP - General 07/30/07 05/27/09 documented as of this encounter
--- OUTSIDE RECORDS SUMMARY | 2025-01-22 15:38 | XMS_ITS | Encounter Summary ---
Author Organization [facility] Address [address] [place] [address] Care Team Providers Care Rack Cleaner Name Role Phone Brandt Lees AIRBORNE SENSOR SPECIALIST Primary Care Provider [phone] Encounter Details Date Type Department Care Team (Latest Contact Info) Description 08/09/2001 Outpatient Historical [facility] Medicine [facility] [address] [phone] Yadiel Michelle MD [address] [place] [phone] NONINFEC GASTROENTERIT NEC (Primary Dx) Social History Tobacco Use Types Packs/Day Years Used Date Smoking Tobacco: Never Assessed Sex and Gender Information Value Date Recorded Sex Assigned at Not on file Legal Sex Male 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
--- OUTSIDE RECORDS SUMMARY | 2025-01-22 15:38 | XMS_ITS | Encounter Summary ---
Author Organization [facility] Address [address] Velan: Epic Prelude ADT ISIAH VOSS [address] Care Team Providers Care Safety Tech Name Role Phone Brandt Lees PIPER INSTALLER Primary Care Provider [phone] Encounter Details Date Type Department Care Team (Late st Contact Info) Description 02/18/2002 Outpatient Historical Non-Staff, Physician NO ADDRESS ON FILE Social History Tobacco Use Types Packs/Day Years Used Date Smoking Tobacco: Never Assessed Sex and Gender Information Value Date Recorded Sex Assigned at Not on file Legal Sex Male 5:08 AM RESIDENTIAL DESIGNER Gender Identity Not on file Sexual Orientation Not on file documented as of this encounter Plan of Treatment Not on file documented as of this encounter Visit Diagnoses Not on filedocumented in this encounter Care Teams Safety Tech Relationship Specialty Start Date End Date Brandt Lees NP PCP - General 07/30/07 05/27/09 documented as of this encounter
--- OUTSIDE RECORDS SUMMARY | 2025-01-22 15:38 | XMS_ITS | Encounter Summary ---
Author Organization [facility] Address [address] [facility] Attn: Epic Prelude ADT ISIAH VOSS [address] Care Team Providers Care Job Trainer Name Role Phone Brandt Lees SOFTWARE SYSTEMS ARCHITECT Primary Care Provider [phone] Encounter Details Date Type Department Care Team (Late st Contact Info) Description 04/12/2000 Inpatient Historical [facility], Physician NO ADDRESS ON FILE Social History Tobacco Use Types Packs/Day Years Used Date Smoking Tobacco: Never Assessed Sex and Gender Information Value Date Recorded Sex Assigned at Not on file Legal Sex Male 5:08 AM FIRER HELPER Gender Identity Not on file Sexual Orientation Not on file documented as of this encounter Plan of Treatment Not on file documented as of this encounter Visit Diagnoses Not on filedocumented in this encounter Care Teams Job Trainer Relationship Specialty Start Date End Date Brandt Lees NP PCP - General 07/30/07 05/27/09 documented as of this encounter
--- OUTSIDE RECORDS SUMMARY | 2025-01-22 15:38 | XMS_ITS | Encounter Summary ---
Author Organization [facility] Address [address] [place] [address] Care Team Providers Care Rolling Attendant Name Role Phone Brandt Lees EXPERIMENTAL OUTBOARD MOTORS MECHANIC Primary Care Provider [phone] Encounter Details Date Type Department Care Team (Latest Contact Info) Description 07/15/2004 Outpatient Historical [facility] [address] [place] [address] AMBULANCE, [facility] RESPIRATORY ABNORM NEC (Primary Dx) Social History Tobacco Use Types Packs/Day Years Used Date Smoking Tobacco: Never Assessed Sex and Gender Information Value Date Recorded Sex Assigned at Not on file Legal Sex Male 5:08 AM SHOE STAMPER Gender Identity Not on file Sexual Orientation Not on file documented as of this encounter Plan of Treatment Not on file documented as of this encounter Visit Diagnoses Diagnosis Other dyspnea and respiratory abnormality- Primary documented in this encounter Care Teams Rolling Attendant Relationship Specialty Start Date End Date Brandt Lees NP PCP - General 07/30/07 05/27/09 documented as of this encounter
--- OUTSIDE RECORDS SUMMARY | 2025-01-22 15:38 | XMS_ITS | Encounter Summary ---
Author Organization [facility] Address [address] [place] [address] Care Team Providers Care Java Lead Name Role Phone Brandt Lees DRUG DISCOVERY INFORMATICS SPECIALIST Primary Care Provider [phone] Encounter Details Date Type Department Care Team (Latest Contact Info) Description 02/14/2003 Outpatient Historical [facility] Medicine [address] [phone] Yadiel Michelle MD [address] [place] [id number] PNEUMONIA, ORGANISM NOS (Primary Dx) Social History Tobacco Use Types Packs/Day Years Used Date Smoking Tobacco: Never Assessed Sex and Gender Information Value Date Recorded Sex Assigned at Not on file 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
--- OUTSIDE RECORDS SUMMARY | 2025-01-22 15:38 | XMS_ITS | Encounter Summary ---
Author Organization [facility] Address [address] [place] [address] Care Team Providers Care Human Capital Consultant Name Role Phone Brandt Lees DOCUMENT CONTROLLER Primary Care Provider [phone] Encounter Details Date Type Department Care Team (Latest Contact Info) Description 12/27/2001 Outpatient Historical [facility] Medicine [address] [phone] Yadiel Michelle MD [address] [place] [phone] NONINFEC GASTROENTERIT NEC (Primary Dx) Social History Tobacco Use Types Packs/Day Years Used Date Smoking Tobacco: Never Assessed Sex and Gender Information Value Date Recorded Sex Assigned at Not on file 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
--- OUTSIDE RECORDS SUMMARY | 2025-01-22 15:38 | XMS_ITS | Encounter Summary ---
Author Organization [facility] Address [address] [place] [address] Care Team Providers Care Noodle Press Operator Name Role Phone Brandt Lees PRIMARY CLINICIAN Primary Care Provider [phone] Encounter Details Date Type Department Care Team (Latest Contact Info) Description 08/13/1999 Outpatient Historical [facility] [address] [place] [address] Marlon Martinez MD NO ADDRESS ON FILE Shortness of breath (Primary Dx) Social History Tobacco Use Types Packs/Day Years Used Date Smoking Tobacco: Never Assessed Sex and Gender Information Value Date Recorded Sex Assigned at Not on file 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
--- OUTSIDE RECORDS SUMMARY | 2025-01-22 15:38 | XMS_ITS | Encounter Summary ---
Author Organization [facility] Address [address] [place] [address] Care Team Providers Care Lead Cargo Mover Name Role Phone Brandt Lees PAINTER DRUM Primary Care Provider [phone] Encounter Details Date Type Department Care Team (Latest Contact Info) Description 05/19/2003 Outpatient Historical [facility] Medicine [address] [phone] Yadiel Michelle MD [address] [place] [phone] ACUTE BRONCHITIS (Primary Dx); HYPERTENSION NOS; ADV EFFECT MED/BIOL SUB NOS Social History Tobacco Use Types Packs/Day Years Used Date Smoking Tobacco: Never Assessed Sex and Gender Information Value Date Recorded Sex Assigned at Not on file 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
--- NOTE | 2025-01-22 15:53 | CTR_ITS ---
PROCEDURE INFORMATION: Exam: CT Head Without Contrast Exam date and time: 01/22/2025 4:06 PM Age: 59 years old Clinical indication: Pain; Headache; Additional info: BROWN TECHNIQUE: Imaging protocol: Computed tomography of the head without contrast. Radiation optimization: All CT scans at this facility use at least one of these dose optimization techniques: automated exposure control; mA and/or kV adjustment per patient size (includes targeted exams where dose is matched to clinical indication); or iterative reconstruction. COMPARISON: No relevant prior studies available. RADIATION DOSE METRICS: Total DLP (mGy-cm): 1174.5 FINDINGS: Brain: No hemorrhage. Remote lacunar infarct in the left basal ganglia. Patchy areas of mild hypoattenuation within the periventricular white matter are nonspecific but likely reflect a background of mild microvascular ischemic changes. No mass effect. Cerebral ventricles: No ventriculomegaly. Paranasal sinuses: Mucosal thickening of the ethmoid air cells. No fluid levels. Mastoid air cells: Visualized mastoid air cells are well aerated. Bones: No acute fracture. Remote left medial orbital wall blowout fracture. Soft tissues: Unremarkable. CT/CT head wo con* [id number] IMPRESSION: No acute intracranial finding.
--- NOTE | 2025-01-22 15:57 | W.ED.RECABL ---
HPI - Recheck/Abnormal Lab/Rx General: Chief Complaint: Recheck/Abnormal Lab/Rx Stated Complaint: hypertension Time Seen by Provider: 01/22/25 15:35 Source: patient and EMS Mode of arrival: EMS Limitations: no limitations History of Present Illness: 59-year-old male who is here from long-term with high blood pressures per EMS he has been having hypertension over the last 2 to 3 days he does take lisinopril at the long-term. States he has a headache he rates it a 6 out of 10 he denies any focal deficits or slurred speech. States that headaches been mild in nature over the last 2 days denies any thunderclap headache. Related Data Previous Rx's ?Medication ?Instructions ?Recorded amlodipine 5 mg tablet (Norvasc) 5 mg PO DAILY #30 tabs 01/22/25 Allergies Allergy/AdvReac Type Severity Reaction Status Date / Time codeine Allergy ADR-Agitate Verified 01/22/25 15:40 d tetracycline Allergy ALGY-Anaphy Verified 01/22/25 15:40 laxis Review of Systems Const: Denies: fever(s), chills, body aches or change in appetite Eyes: Denies: eye discomfort ENMT: Denies: throat pain or dental pain Card: Denies: chest pain Resp: Denies: dyspnea GI: Denies: abdominal pain, nausea, vomiting or diarrhea Musc: Denies: neck pain or back pain Skin/Breast: Denies: rash Neuro: Reports: headache(s) [facility] PFSH: Social History Smoking and tobacco/nicotine status: current some day tobacco/nicotine user Physical Exam Const: COMMON NORMALS: no acute distress, patient oriented x3 and healthy appearing HENMT: COMMON NORMALS: normocephalic and atraumatic HEAD & SCALP: normocephalic and atraumatic Eye: COMMON NORMALS: Equal, round and reactive pupils present and EOMs intact bilaterally PUPIL: Yes Equal, round and reactive pupils present Neck/C-Spine: COMMON NORMALS: full ROM and supple Chest: COMMONS NORMALS: normal inspection of the chest and normal palpation of entire chest wall Resp: COMMON NORMALS: normal respiratory effort, No retractions, No use of accessory muscles and clear to auscultation bilaterally AUSCULTATION: clear to auscultation bilaterally Cardio: COMMON NORMALS: regular rate, regular rhythm and No murmurs present (Cardio) RATE: regular rate RHYTHM: regular rhythm GI: COMMON NORMALS: Normal to inspection, nondistended, normoactive bowel sounds present, Soft to palpation, non-tender and no masses PALPATION: Yes Soft to palpation Extremity: COMMON NORMALS: normal to inspection and full ROM Neuro: COMMON NORMALS: patient oriented x3, moves all extremities and no focal motor deficits Psych: COMMON NORMALS: mental status grossly normal, Normal thought process present and cooperative THOUGHT PROCESS: Normal thought process present Skin: COMMON NORMALS: no rashes or lesions noted and no wounds GENERAL SKIN EXAM: no rashes or lesions noted Course Vital Signs: Vital signs: Vital Signs Temperature 98.2 F 01/22/25 15:35 Pulse Rate 66 01/22/25 16:59 Respiratory Rate 18 01/22/25 15:35 Blood Pressure 154/98 01/22/25 16:59 Pulse Oximetry 92 01/22/25 16:59 Oxygen Delivery Me thod Room Air 01/22/25 15:35 MDM - Recheck/Abnormal Lab/Rx Medical Decision Making Patient presents here with hypertension blood pressure has improved and had a mild headache that is improved as well as no signs of CVA no signs of meningitis or subarachnoid hemorrhage. Will prescribe him Norvasc for the long-term follow-up with PCP return if worsening. Medical Records I reviewed the patient's medical records. Lab Data I reviewed the patient's lab results. 01/22/25 15:57 01/22/25 15:[address] 01/22/25 15:53 IMPRESSION: No acute intracranial finding. Laboratory Results WBC 7.08 10^3/uL (3.29-11.43) 01/22/25 15:57 RBC 4.68 10^6/uL (3.85-5.65) 01/22/25 15:57 Hgb 14.70 g/dL (11.27-16.99) 01/22/25 15:57 Hct 44.7 % (37-53) 01/22/25 15:57 MCV 95.5 fl (82-101) 01/22/25 15:57 MCH 31.4 pg (27-33) 01/22/25 15:57 MCHC 32.9 g/dL (30-55) 01/22/25 15:57 RDW 12.6 % (12.1-15.1) 01/22/25 15:57 Plt Count 264 10^3/cmm (157-399) 01/22/25 15:57 MPV 10.0 fL (7.4-10.4) 01/22/25 15:57 Neut % (Auto) 54.3 % 01/22/25 15:57 Lymph % (Auto) 28.1 % 01/22/25 15:57 Karnes % (Auto) 11.0 % 01/22/25 15:57 Eos % (Auto) 4.7 % 01/22/25 15:57 Baso % (Auto) 1.6 % 01/22/25 15:57 Neut # (Auto) 3.85 10^3/uL (1.8-7.7) 01/22/25 15:57 Lymph # (Auto) 2.0 10^3/uL (0.8-4.8) 01/22/25 15:57 Karnes # (Auto) 0.8 10^3/uL (0.2-0.9) 01/22/25 15:57 Eos # (Auto) 0.3 10^3/uL (0.0-0.8) 01/22/25 15:57 Baso # (Auto) 0.1 10^3/uL (0.0-0.1) 01/22/25 15:57 Nucleated RBC % (auto) 0 % 01/22/25 15:57 Nucleated RBCs # 0.0 /100WBC 01/22/25 15:57 Sodium 137 mmol/L (136-145) 01/22/25 15:57 Potassium 4.0 mmol/L (3.5-5.1) 01/22/25 15:57 Chloride 100 mmol/L (98-107) 01/22/25 15:57 Carbon Dioxide 27 mmol/L (22-29) 01/22/25 15:57 Anion Gap 14.0 (5-19) 01/22/25 15:57 BUN 9 mg/dL (8-23) 01/22/25 15:57 Creatinine 0.5 mg/dL (0.7-1.2) L 01/22/25 15:57 GFR Calculation 169.0 mL/min (90-130) H 01/22/25 15:57 Glucose 92 mg/dL (65-115) 01/22/25 15:57 Calculated Osmolality 282 mOsm/kg (285-295) L 01/22/25 15:57 Calcium 8.7 mg/dL (8.5-10.5) 01/22/25 15:57 Total Bilirubin 0.2 mg/dL (0.15-1.2) 01/22/25 15:57 AST 21 U/L (0-40) 01/22/25 15:57 ALT 13 U/L (0-41) 01/22/25 15:57 Alkaline Phosphatase 87 U/L (40-130) 01/22/25 15:57 Total Protein 6.7 g/dL (6.6-8.7) 01/22/25 15:57 Albumin 4.1 g/dL (3.5-5.2) 01/22/25 15:57 Globulin 2.6 g/dL (1.3-4.6) 01/22/25 15:57 All radiology interpretation(s) finalized by discharge Discharge Plan Discharge Patient Disposition: Home Clinical Impression: Hypertension, Headache Condition: Stable Prescriptions: New amlodipine [Norvasc] 5 mg tablet 5 mg PO DAILY Qty: 30 0RF Discharge Orders: Discharge ED (Routine); Ordered 01/22/25 Ordered By: Rachael Carrion Discharge Diet: Advance as tolerated Discharge Activity: Resume usual activity Patient Instructions: Hypertension (ED) Print Language: Citizen Of [place] Coding Level of Care Code ED Neon Glass Blower for Darrel Bess NIH stroke score NIHSS Level Of Consciousness - 1a: 0 Level Of Consciousness Questions - 1b: Both Correct Level Of Consciousness Commands - 1c: Both Correct Best Gaze - 2: Normal Visual Small - 3: No Visual Loss Facial Palsy - 4: Normal Motor Arm Right - 5: No Drift Motor Arm Left - 5: No Drift Motor Leg Right - 6: No Drift Motor Leg Left - 6: No Drift Limb Ataxia - 7: Absent Sensory - 8: Normal Best Language - 9: No Aphasia Dysarthia - 10: Normal Extinction And Inattention - 11: 0 Score Total Score: 0
[2025-01-22 16:02] LABS: Hematocrit 44.7 % (37-53); Hemoglobin 14.70 g/dL (11.27-16.99); Mean Corpuscular HGB Conc 32.9 g/dL (30-55); Mean Corpuscular Hemoglobin 31.4 pg (27-33); Mean Corpuscular Volume 95.5 fl (82-101); Nucleated Red Blood Cells % 0 %; Platelet Count 264 10^3/cmm (157-399); Red Blood Count 4.68 10^6/uL (3.85-5.65); White Blood Count 7.08 10^3/uL (3.29-11.43)
[2025-01-22 16:23] LABS: Alanine Aminotransferase 13 U/L (0-41); Albumin Level 4.1 g/dL (3.5-5.2); Alkaline Phosphatase 87 U/L (40-130); Anion Gap 14.0 (5-19); Aspartate Amino Transferase 21 U/L (0-40); Blood Urea Nitrogen 9 mg/dL (8-23); Calcium 8.7 mg/dL (8.5-10.5); Carbon Dioxide 27 mmol/L (22-29); Chloride 100 mmol/L (98-107); Creatinine Clr Calc Pharmacy 156.7931; Globulin 2.6 g/dL (1.3-4.6); Glucose 92 mg/dL (65-115); Osmolality Calculated 282 mOsm/kg (285-295); Potassium 4.0 mmol/L (3.5-5.1); Sodium 137 mmol/L (136-145); Total Protein 6.7 g/dL (6.6-8.7)
[2025-01-22] MEDS: hyDRALAzine 20 mg/mL INJ 1 mL 10 MG IVP (16:27)
[2025-01-22 16:59] VITALS: BP 154/98; PULSE 66; O2SAT 92
[2025-01-22] MEDS: HYDROcodone-acetaminophen 5-325 mg Tablet 1 TAB PO (17:37)
[2025-01-22 17:38] VITALS: BP 177/95; PULSE 59; O2SAT 92
== END 2025-01-22 18:27 | disposition home or self-care (01) ==
PROVIDERS: Emergency Provider Emergency Medicine
DX: I10 Essential (primary) hypertension (principal); R51.9 Headache, unspecified; Z72.0 Tobacco use
CPT/HCPCS: 36415; 70450; 80053; 85025; 96374; 96375; 99285; J0360; J1885; J9999

== ENCOUNTER → 2025-02-27 14:16 | Outpatient (BNVA) | payer MEDICAID, SELFPAY | PROVIDERS: Visit Provider Thoracic Surgery (Cardiothoracic Vascular Surgery) | DX: I96 Gangrene, not elsewhere classified (principal); L89.893 Pressure ulcer of other site, stage 3; L89.152 Pressure ulcer of sacral region, stage 2 | CPT/HCPCS: 97597 ==

== ENCOUNTER → 2025-03-07 08:24 | Outpatient (BNVA) | payer MEDICAID, SELFPAY | PROVIDERS: Visit Provider Thoracic Surgery (Cardiothoracic Vascular Surgery) | DX: I96 Gangrene, not elsewhere classified (principal); L89.893 Pressure ulcer of other site, stage 3; L89.892 Pressure ulcer of other site, stage 2; L89.152 Pressure ulcer of sacral region, stage 2; Z09 Encounter for follow-up examination after completed treatment for conditions other than malignant neoplasm | CPT/HCPCS: 97597 ==

== ENCOUNTER → 2025-03-14 09:30 | Outpatient (BNVA) | payer MEDICAID, SELFPAY | PROVIDERS: Visit Provider Thoracic Surgery (Cardiothoracic Vascular Surgery) | DX: I96 Gangrene, not elsewhere classified (principal); L89.893 Pressure ulcer of other site, stage 3; L89.892 Pressure ulcer of other site, stage 2 | CPT/HCPCS: 97597; A6212 ==

== ENCOUNTER → 2025-03-21 11:13 | Outpatient (BNVA) | payer MEDICAID, SELFPAY | PROVIDERS: Visit Provider Thoracic Surgery (Cardiothoracic Vascular Surgery) | DX: I96 Gangrene, not elsewhere classified (principal); L89.893 Pressure ulcer of other site, stage 3; L89.152 Pressure ulcer of sacral region, stage 2 | CPT/HCPCS: 97597 ==

== ENCOUNTER 2025-03-23 14:13 | Outpatient (CLI) | payer MEDICAID, SELFPAY ==
[2025-03-23 15:19] LABS: Alanine Aminotransferase 6 U/L (0-41); Albumin Level 4.3 g/dL (3.5-5.2); Alkaline Phosphatase 104 U/L (40-130); Anion Gap 14.8 (5-19); Aspartate Amino Transferase 14 U/L (0-40); Blood Urea Nitrogen 11 mg/dL (8-23); Calcium 8.9 mg/dL (8.5-10.5); Carbon Dioxide 28 mmol/L (22-29); Chloride 98 mmol/L (98-107); Globulin 2.8 g/dL (1.3-4.6); Glucose 95 mg/dL (65-115); Osmolality Calculated 281 mOsm/kg (285-295); Potassium 4.8 mmol/L (3.5-5.1); Sodium 136 mmol/L (136-145); Total Protein 7.1 g/dL (6.6-8.7)
[2025-03-23 15:28] LABS: HIV 1 & 2 Antigen Non-Reactive (Non-Reactiv)
[2025-03-24 01:05] LABS: Hepatitis A Antibody IgM Non-Reactive (Nonreactive); Hepatitis B Surface Antigen Non-Reactive (Nonreactive)
== END 2025-03-23 14:14 | disposition home or self-care (01) ==
PROVIDERS: PCP Family Medicine; Visit Provider Nurse Practitioner Family
DX: L40.0 Psoriasis vulgaris (principal)
CPT/HCPCS: 36415; 80053; 80074; 86480; 87806